=== PATIENT | female | born 1950 | race Caucasian/White ===

== ENCOUNTER → 2018-11-02 | Outpatient (REF) | payer MEDICARE, OTHER | LOC: M LAB REF 13:24 | PROVIDERS: ATTEND Podiatrist Foot & Ankle Surgery | DX: L89.891 Pressure ulcer of other site, stage 1 (principal); E11.621 Type 2 diabetes mellitus with foot ulcer ==

== ENCOUNTER → 2021-02-16 | Outpatient (REF) | payer MEDICARE, OTHER | LOC: M LAB REF 16:51 | PROVIDERS: ATTEND Podiatrist Foot & Ankle Surgery | DX: M71.372 Other bursal cyst, left ankle and foot (principal) ==

== ENCOUNTER → 2021-04-25 | Outpatient (REF) | payer MEDICARE, OTHER | LOC: M LAB REF 19:01 | PROVIDERS: ATTEND Podiatrist Foot & Ankle Surgery | DX: M67.472 Ganglion, left ankle and foot (principal) ==

== ENCOUNTER → 2021-06-15 | Outpatient (REF) | payer MEDICARE, OTHER | LOC: M LAB REF 17:00 | PROVIDERS: ATTEND Podiatrist Foot & Ankle Surgery | DX: L03.116 Cellulitis of left lower limb (principal) ==